=== PATIENT | female | born 2000 | race Caucasian/White ===

== ENCOUNTER 2022-09-10 15:21 | Emergency (ER) | payer OTHER ==
[~2022-09-10] VITALS: Ht 165.1 cm; Wt 69.1 kg
[2022-09-10 15:22] VITALS: TEMP 97.1
[2022-09-10] MEDS ORDERED: AZIT-12 PO (15:30)
[2022-09-10] MEDS ORDERED: MONT-5 PO (15:30)
[2022-09-10 16:33] LABS: BASO # 0.1 10^3/uL (0.0-0.2); BASO % 0.7 % (0.0-1.0); EOS % 0.1 % (0.0-3.0); HEMATOCRIT 38.1 % (36.0-47.0); HEMOGLOBIN 12.8 g/dl (12.0-15.5); LYMPH # 5.9 10^3/uL (1.5-5.0); LYMPH % 71.3 % (24.0-44.0); MEAN CORPUSCULAR HEMOGLOBIN 30.4 pg (27.0-33.0); MEAN CORPUSCULAR HGB CONC 33.6 g/dl (32.0-36.5); MEAN CORPUSCULAR VOLUME 90.5 fl (80.0-96.0); MONO # 0.8 10^3/uL (0.0-0.8); MONO % 9.4 % (2.0-8.0); NEUTROPHILS # 1.5 10^3/uL (1.5-8.5); NEUTROPHILS % 18.4 % (36.0-66.0); PLATELET COUNT, AUTOMATED 144 10^3/uL (150-450); RED BLOOD COUNT 4.21 10^6/uL (4.00-5.40); WHITE BLOOD COUNT 8.2 10^3/uL (4.0-10.0)
[2022-09-10 16:34] LABS: MONO SCRN NEGATIVE (NEGATIVE)
[2022-09-10 16:56] LABS: ERYTHROCYTE SEDIMENTATION RATE 19 mm/hr (0-20)
[2022-09-10] MEDS ORDERED: dexAMETHasone 20MG/5ML VIAL IV ONE (17:30)
[2022-09-10] MEDS ORDERED: NS 1,000 ML IV ONE (17:30)
[2022-09-10] MEDS ORDERED: ACETAMINOPHEN 1000MG 100ML IV BAG IV ONE (17:30)
[2022-09-10] MEDS ORDERED: ISOVUE-370 76% 100ML VIAL As Ordered ONE (17:44)
[2022-09-10] MEDS ORDERED: AMPICILLIN SOD/SULBACTAM SOD 3 GM in D5W MINI-BAG PLUS 100 ML IV ONE (19:30)
[2022-09-10] MEDS ORDERED: KETOROLAC 30 MG/ML 1ML VIAL IV ONE (19:35)
[2022-09-10] MEDS ORDERED: AMOX875T2 PO (19:35)
[2022-09-10] MEDS ORDERED: PRED20TA PO (19:35)
[2022-09-10 20:19] VITALS: BP 107/55; O2SAT 98
[2022-09-13 18:08] LABS: EBV AB TO NUCLEAR ANTIGEN <18.0 U/mL (0.0-17.9); EBV VIRAL CAPSID AG IgG 93.9 U/mL (0.0-17.9); EBV VIRAL CAPSID AG IgM >160.0 U/mL (0.0-35.9)
== END 2022-09-10 20:35 | disposition home or self-care (01) ==
LOC: M ED 15:21
DX: J03.90 Acute tonsillitis, unspecified (principal); J36 Peritonsillar abscess
CPT/HCPCS: 36415; 70491; 80047; 84702; 85025; 85652; 86140; 86308; 86664; 86665; 87880; 96361; 96365; 99284; J0131; J0295; J1100; J1885; Q9967